=== PATIENT | female | born 1955 | race Caucasian/White ===

== ENCOUNTER → 2016-06-30 | Outpatient (CLI) | payer BC ==
[~2016-06-30] MED LIST: ALBUAER2 INH; ASPEC325 PO; B-COCAP2 PO; CALC1CHW57 PO; CLB200 PO; CORN1POW2 PO; FLNIN NAE; GLUCTAB32; LEVO75TA PO; MONT1TAB3 PO; MULT-506 PO; OMEG10007 PO; OMEP40CA PO; OXYSR10 PO; SIMV20TA2 PO
== END | disposition home or self-care (01) ==
LOC: C.LABPVFM 07:27
PROVIDERS: ATTEND Family Medicine
DX: J02.9 Acute pharyngitis, unspecified (principal)

== ENCOUNTER → 2016-07-02 | Outpatient (CLI) | payer BC | END | disposition home or self-care (01) | LOC: C.LAB 14:09 | PROVIDERS: ATTEND Family Medicine | DX: Z00.00 Encounter for general adult medical examination without abnormal findings (principal); Z84.89 Family history of other specified conditions ==

== ENCOUNTER → 2016-07-09 | Outpatient (CLI) | payer BC | END | disposition home or self-care (01) | LOC: C.LAB 16:17 | PROVIDERS: ATTEND Family Medicine | DX: Z84.89 Family history of other specified conditions (principal) ==

== ENCOUNTER → 2016-12-09 | Outpatient (CLI) | payer BC | END | disposition home or self-care (01) | LOC: C.PAPS 09:48 | PROVIDERS: ATTEND Nurse Practitioner | DX: Z00.00 Encounter for general adult medical examination without abnormal findings (principal); Z12.4 Encounter for screening for malignant neoplasm of cervix ==

== ENCOUNTER → 2016-12-22 | Outpatient (CLI) | payer BC ==
--- NOTE | 2016-12-22 15:43 | MAMMOGRAPHY REPORT ---
UNILATERAL LEFT DIGITAL SCREENING MAMMOGRAM TOMOSYNTHESIS WITH CAD: 12/22/2016 CLINICAL HISTORY: Asymptomatic. Personal history of breast cancer. TECHNIQUE: Left breast tomosynthesis in addition to standard 2D mammography was performed. Current st udy was also evaluated with a Computer Aided Detection (CAD) system. COMPARISON: Comparison is made to exams dated: 11/27/2015 mammogram, 11/25/2014 mammogram, 08/08/2013 ma mmogram, 08/03/2012 mammogram, 01/21/2012 mammogram, and 01/27/2012 mammogram - [facility] nter. BREAST COMPOSITION: There are scattered areas of fibroglandular density in the left breast. FINDINGS: There is a stable benign rim calcification in the 3:00 left breast. No suspicious mass, a rchitectural distortion or cluster of new, suspicious microcalcifications is seen. IMPRESSION: ACR BI-RADS CATEGORY 1: NEGATIVE There is no mammographic evidence of malignancy. A 1 year screening mammogram is recommended. The pa tient will receive written notification of the results. Approximately 10% of breast cancers are not detected with mammography. A negative mammographic report should not delay biopsy if a clinically suggestive mass is present. Manjula Benson M.D. ay/:12/22/2016 15:28:02 Airline Ticket Agent: Venita ANDREWS)([place])([place]), [facility] letter sent: Normal 1/2 BI-RADS Code: ACR BI-RADS Category 1: Negative
== END | disposition home or self-care (01) ==
LOC: C.MAMM 12:40
PROVIDERS: ATTEND Family Medicine
DX: Z12.31 Encounter for screening mammogram for malignant neoplasm of breast (principal); Z85.3 Personal history of malignant neoplasm of breast; Z08 Encounter for follow-up examination after completed treatment for malignant neoplasm

== ENCOUNTER → 2017-04-23 | Outpatient (CLI) | payer BC ==
[2017-04-23 13:19] LABS: BLOOD UREA NITROGEN 20 mg/dl (7-18); BUN/CREATININE RATIO 24.9 (10-20); CARBON DIOXIDE 32 mmol/L (21-32); CHLORIDE 103 mmol/L (98-107); CREATININE 0.82 mg/dl (0.60-1.20); GLUCOSE 108 mg/dl (70-99); POTASSIUM 4.1 mmol/L (3.5-5.1); SODIUM 138 mmol/L (136-145)
[2017-04-23 13:29] LABS: CHOLESTEROL 165 mg/dl (0-200); CHOLESTEROL/HDL RATIO 2.6; HDL CHOLESTEROL 63 mg/dl; LDL CHOLESTEROL CALCULATED 85 mg/dl; TRIGLYCERIDES 83 mg/dl (0-150); VERY LOW DENSITY LIPOPROT CALC 17 mg/dl
== END | disposition home or self-care (01) ==
LOC: C.LABPVFM 08:03
PROVIDERS: ATTEND Family Medicine
DX: E03.9 Hypothyroidism, unspecified (principal); E87.6 Hypokalemia; E78.2 Mixed hyperlipidemia

== ENCOUNTER → 2017-06-20 | Day surgery (SDC) | payer BC ==
[2017-06-07 08:48] VITALS: Ht 167.6 cm; Wt 97.7 kg
[~2017-06-20] VITALS: Ht 167.6 cm; Wt 97.7 kg
[~2017-06-20] MED LIST changes: -ALBUAER2 INH; -ASPEC325 PO; +ATROPINE SULFATE 0.1 MG/ML 5ML SYR IV PRN; -B-COCAP2 PO; -CALC1CHW57 PO; -CLB200 PO; -CORN1POW2 PO; -FLNIN NAE; -GLUCTAB32; +INUL1CHW2 PO; +LIDOCAINE HCL 2% 2 ML VIAL (20MG/ML) ONE; +MAGN400T6 PO; +MELO15TA4 PO; +MIDAZOLAM HCL 1 MG/ML 2ML VIAL ONE; -OMEG10007 PO; -OMEP40CA PO; +OMEP40CA41 PO; -OXYSR10 PO; +POTA10CA28 PO; +PROPOFOL IV EMULSION 10 MG/ML 20 ML VIAL IV ONE; +RANI150T3 PO
--- NOTE | 2017-06-20 15:01 | Endo History and Physical ---
History & Physical Date of Service: Jun 20, 2017. Chief Complaint: Tubular Adenoma Referring Physician: Delfino History of Present Illness 61 yo CF who presents for colonoscopy secondary to history of colon polyps. Past Surgical History Hx Cardiac Surgery: No Hx Abdominal Surgery: Yes (TUBAL LIGATION, COLON RESECTION/COLOSTOMY AND REVERSAL) Hx Post-Op Nausea and Vomiting: No Hx Cancer Surgery: Yes (RT MASTECTOMY) Hx Thoracic Surgery: No Hx Orthopedic: Yes (LEFT TKA) Hx Urinary Tract Surgery: No Family History None Social History Smoking Status: Never Smoker Hx Substance Use: No Hx Alcohol Use: No Allergies Coded Allergies: Ephedrine (Unverified Adverse Reaction, Unknown, INCREASED HEART RATE, 06/07) Pseudoephedrine (Unverified Adverse Reaction, Unknown, INCREASED HEART RATE, 06/07/17) Current Medications Reported Home Medications Medications Dose Route/Sig Max Daily Dose Days Date Category Mag-Ox (Magnesium Oxide) 400 Mg Tab 400 Mg PO 06/20/17 Reported Mobic (Meloxicam) 15 Mg Tab 15 Mg PO DAILY AT LUNCH 06/07/17 Reported Synthroid (Levothyroxine Sodium) 75 Mcg Tab 75 Mcg PO QAM 06/07/17 Reported Zantac (Ranitidine HCl) 150 Mg Tab 150 Mg PO BID 06/07/17 Reported Prilosec (Omeprazole) 40 Mg Cap 40 Mg PO BID 06/07/17 Reported Fiber Choice (Inulin) 1.5 Gm Chw 1 Dose PO DAILY 06/07/17 Reported Multivitamin (Multivitamins) Tab 1 Tab PO DAILY 06/07/17 Reported Micro-K Ext Rel (Potassium Chloride) 10 Meq Capcr 10 Meq PO DAILY AT LUNCH 06/07/17 Reported Zocor (Simvastatin) 20 Mg Tab 20 Mg PO QPM 06/07/17 Reported Singulair (Montelukast Sodium) 10 Mg Tab 10 Mg PO HS 06/07/17 Reported Vital Signs Weight (Kilograms): 97.73 Height (Feet): 5 Height (Inches): 6 Date Time Temp Pulse Resp B/P (MAP) Pulse Ox O2 Delivery O2 Flow Rate FiO2 06/20/17 14:35 36.6 80 20 158/92 (114) 96 Room Air Physical Exam General Appearance: WD/WN, no apparent distress Respiratory/Chest: Auscultation: breath sounds normal Cardiovascular: Heart Auscultation: RRR Abdomen: Bowel Sounds: normal Inspection & Palpation: soft, non-distended, no tenderness, guarding & rebound Assessment and Plan Assessment: 61 yo CF who presents for colonoscopy secondary to history of colon polyps. Plan: Proceed with colonoscopy.
--- NOTE | 2017-06-20 16:02 | GI REPORT ---
Procedure Date: 06/20/2017 3:06 PM THIS REPORT HAS BEEN AMENDED Addendum Number: 1 Addendum Date: 06/20/2017 4:15:23 PM Indication for Procedure should be History of Colon polyps. Repeat colonoscopy should be in 5 years due to personal history of colon polyps. Procedure: Colonoscopy Indications: Screening for colorectal malignant neoplasm Medicines: Monitored Anesthesia Care Complications: No immediate complications. Estimated Blood Loss: Estimated blood loss: none. Procedure: Pre-Anesthesia Assessment: - Prior to the procedure, a History and Physical was performed, and patient medications and allergies were reviewed. The patient's tolerance of previous anesthesia was also reviewed. The risks and benefits of the procedure and the sedation options and risks were discussed with the patient. All questions were answered, and informed consent was obtained. Prior Anticoagulants: The patient has taken no previous anticoagulant or antiplatelet agents. ASA Grade Assessment: III - A patient with severe systemic disease. After reviewing the risks and benefits, the patient was deemed in satisfactory condition to undergo the procedure. After I obtained informed consent, the scope was passed under direct vision. Throughout the procedure, the patient's blood pressure, pulse, and oxygen saturations were monitored continuously. The Scope was introduced through the anus and advanced to the terminal ileum. The colonoscopy was performed without difficulty. The patient tolerated the procedure well. The quality of the bowel preparation was good. The terminal ileum, ileocecal valve, appendiceal orifice, and rectum were photographed. Findings: The perianal and digital rectal examinations were normal. There was evidence of a prior end-to-side colo-colonic anastomosis in the sigmoid colon. This was patent and was characterized by healthy appearing mucosa. The anastomosis was traversed. Multiple small-mouthed diverticula were found in the sigmoid colon. Non-bleeding internal hemorrhoids were found during retroflexion. The hemorrhoids were small. Impression: - Patent end-to-side colo-colonic anastomosis, characterized by healthy appearing mucosa. - Diverticulosis in the sigmoid colon. - Non-bleeding internal hemorrhoids. - No specimens collected. Recommendation: - Resume previous diet. - Continue present medications. - Await pathology results. - Repeat colonoscopy in 10 years for surveillance. - Return to primary care physician as previously scheduled. Adam Wu DO 06/20/2017 4:02:01 PM This report has been signed electronically. Note Initiated On: 06/20/2017 3:06 PM I attest to the content of the Intraoperative Record and orders documented therein, exceptions below Adam Wu, DO 06/20/2017 4:16:02 PM This report has been signed electronically.
--- NOTE | 2017-06-20 16:04 | Discharge Instructions ---
Endoscopy Patient Instructions Date / Procedure(s) Performed Jun 20, 2017. Colonoscopy Allergy Information Coded Allergies: Ephedrine (Unverified Adverse Reaction, Unknown, INCREASED HEART RATE, ) Pseudoephedrine (Unverified Adverse Reaction, Unknown, INCREASED HEART RATE, 06/20/17) Discharge Date / Findings Jun 20, 2017. Diverticulosis Internal hemorrhoids Medication Instructions OK to resume all medications today as prescribed Reported Home Medications Medications Dose Route/Sig Max Daily Dose Days Date Category Mag-Ox (Magnesium Oxide) 400 Mg Tab 400 Mg PO 06/20/17 Reported Mobic (Meloxicam) 15 Mg Tab 15 Mg PO DAILY AT LUNCH 06/07/17 Reported Synthroid (Levothyroxine Sodium) 75 Mcg Tab 75 Mcg PO QAM 06/07/17 Reported Zantac (Ranitidine HCl) 150 Mg Tab 150 Mg PO BID 06/07/17 Reported Prilosec (Omeprazole) 40 Mg Cap 40 Mg PO BID 06/07/17 Reported Fiber Choice (Inulin) 1.5 Gm Chw 1 Dose PO DAILY 06/07/17 Reported Multivitamin (Multivitamins) Tab 1 Tab PO DAILY 06/07/17 Reported Micro-K Ext Rel (Potassium Chloride) 10 Meq Capcr 10 Meq PO DAILY AT LUNCH 06/07/17 Reported Zocor (Simvastatin) 20 Mg Tab 20 Mg PO QPM 06/07/17 Reported Singulair (Montelukast Sodium) 10 Mg Tab 10 Mg PO HS 06/07/17 Reported Provider Instructions Activity Restrictions - No exercising or heavy lifting for 24 hours. - Do not drink alcohol the day of the procedure. - Do not drive a car or operate machinery until the day after the procedure. - Do not make any important decisions or sign important papers in 24 hours after the procedure. Following Day: - Return to full activity which may include returning to work/school. Diet Start your diet with liquids and light foods (jello, soup, juice, toast). Then eat your usual diet if not nauseated. Treatment For Common After Affects For mild abdominal pain, bloating, or excessive gas: - Rest - Eat lightly - Lie on right side Follow-Up Information Follow-up with Delfino as scheduled Anesthesia Information What You Should Know You have had a procedure that required some medicine to reduce anxiety and discomfort. This treatment is called moderate sedation. After receiving the treatment, you may be sleepy, but you will be able to breathe on your own. The effects of the treatment may last for several hours. Follow these instructions along with Activity/Diet recommendations noted above: * Do NOT do anything where dizziness or clumsiness would be dangerous. * Rest quietly at home today, then you can be up and about tomorrow. * Have a responsible person stay with you the rest of today. * You may have had an I.V. today. If so, you may take the dressing off later today. Recommendations Call your doctor if: * Trouble breathing * Continuous vomiting for more than 24 hours * Temperature above 101 degrees * Severe abdominal pain or bloating * Pain not relieved by pain medicine ordered * There is increased drainage or redness from any incision * A large amount of rectal bleeding greater than 2-3 tablespoons. (If you had a polyp/s removed or have hemorrhoids, a small amount of blood - from the rectum is to be expected.) * You have any unanswered questions or concerns. IN THE EVENT OF A SERIOUS EMERGENCY, GO TO THE NEAREST EMERGENCY ROOM Your discharge instructions were prepared by provider Adam Wu. Patient Instructions Signature Page Brook Martinez Patient (or Guardian) Signature/Date: I have read and understand the instructions given to me by my caregivers. Caregiver/RN/Doctor Signature/Date: The above-named patient and/or guardian has received patient instructions on this date. + Original Patient Signature Page (only) stays with chart. Please make copy for patient.
--- NOTE | 2017-06-20 16:21 | Anesthesiology Progress Note ---
Anesthesia Post Op Note Date & Time Jun 20, 2017 at 16:20 Vital Signs Pain Intensity: 0 Vital Signs Past 12 Hours Date Time Temp Pulse Resp B/P (MAP) Pulse Ox O2 Delivery O2 Flow Rate FiO2 06/20/17 16:10 62 18 137/88 (104) 98 Room Air 06/20/17 15:55 66 18 128/79 (95) 96 Room Air 06/20/17 14:35 36.6 80 20 158/92 (114) 96 Room Air Notes Mental Status: alert / awake / arousable, participated in evaluation Pt Amnestic to Procedure: Yes Nausea / Vomiting: adequately controlled Pain: adequately controlled Airway Patency, RR, SpO2: stable & adequate BP & HR: stable & adequate Hydration State: stable & adequate Anesthetic Complications: no major complications apparent
[2017-06-20 16:25] VITALS: BP 157/99; PULSE 62; O2SAT 98
== END | disposition home or self-care (01) ==
LOC: C.GI 14:09
PROVIDERS: ATTEND Internal Medicine
DX: Z12.11 Encounter for screening for malignant neoplasm of colon (principal); Z86.010 Personal history of colon polyps; K57.30 Diverticulosis of large intestine without perforation or abscess without bleeding; K64.8 Other hemorrhoids; Z98.0 Intestinal bypass and anastomosis status; E78.5 Hyperlipidemia, unspecified; G47.33 Obstructive sleep apnea (adult) (pediatric); K21.9 Gastro-esophageal reflux disease without esophagitis; E03.9 Hypothyroidism, unspecified; M19.90 Unspecified osteoarthritis, unspecified site; E66.9 Obesity, unspecified; Z68.34 Body mass index [BMI] 34.0-34.9, adult; Z85.3 Personal history of malignant neoplasm of breast; Z79.899 Other long term (current) drug therapy

== ENCOUNTER → 2017-09-26 | Outpatient (CLI) | payer BC ==
[~2017-09-26] MED LIST changes: -ATROPINE SULFATE 0.1 MG/ML 5ML SYR IV PRN; -LIDOCAINE HCL 2% 2 ML VIAL (20MG/ML) ONE; +MELO-84 PO; -MELO15TA4 PO; -MIDAZOLAM HCL 1 MG/ML 2ML VIAL ONE; -PROPOFOL IV EMULSION 10 MG/ML 20 ML VIAL IV ONE
== END | disposition home or self-care (01) ==
LOC: C.MAMM 15:40
PROVIDERS: ATTEND Family Medicine
DX: Z00.00 Encounter for general adult medical examination without abnormal findings (principal)

== ENCOUNTER → 2017-12-26 | Outpatient (CLI) | payer BC ==
--- NOTE | 2017-12-27 07:31 | MAMMOGRAPHY REPORT ---
UNILATERAL LEFT DIGITAL SCREENING MAMMOGRAM TOMOSYNTHESIS WITH CAD: 12/26/2017 CLINICAL HISTORY: Personal history of breast cancer. Asymptomatic. TECHNIQUE: The study was acquired using full field digital technology and interpreted from soft copy. Breast tomosynthesis in addition to standard 2D mammography was performed. Current study was also ev aluated with a Computer Aided Detection (CAD) system. COMPARISON: Comparison is made to exams dated: 12/22/2016 mammogram, 11/27/2015 mammogram, 11/25/2014 m ammogram, 08/08/2013 mammogram, 08/03/2012 mammogram, and 01/27/2012 ultrasound - [facility] enter. BREAST COMPOSITION: There are scattered areas of fibroglandular density in left breast. FINDINGS: The parenchymal pattern of the left breast is unchanged. No developing mass, architectural distortion or cluster of suspicious microcalcifications is seen. IMPRESSION: ACR BI-RADS CATEGORY 2: BENIGN BI-RADS: BI-RADS 1NEGATIVE. There is no mammographic evidence of malignancy. [facility]12/[facility]/2018) The patient will receive written notification of the results. Some breast cancers are not detected with mammography. A negative mammographic report should not debora y biopsy if a clinically suggestive mass is present. Manjula Benson M.D. ay/:12/26/2017 10:14:09 Personnel Research Scientist: RT Kelsey([place])(M), [facility] letter sent: Normal 1/2 BI-RADS Code: ACR BI-RADS Category 2: Benign
== END | disposition home or self-care (01) ==
LOC: C.MAMM 08:53
PROVIDERS: ATTEND Family Medicine
DX: Z12.31 Encounter for screening mammogram for malignant neoplasm of breast (principal); Z85.3 Personal history of malignant neoplasm of breast

== ENCOUNTER 2023-09-14 09:39 | Observation (INO) ==
--- NOTE | 2023-08-23 16:14 | PAT Medication Instructions ---
Medication Instructions Date of Service August 23, 2023 Home Medications Medication Instructions Recorded albuterol sulfate 90 mcg/actuation 2 inh inhalation Q6H PRN shortness 10/10/20 breath activated powder inhaler of breath or wheezing #1 ea fluticasone propionate 50 1 spray intranasal BID #48 grams 11/12/22 mcg/actuation nasal spray,suspension naloxone 1 mg/mL injection syringe 1 mg subcut .COMPLEX PRN opioid 04/08/23 reversal #4 mL gabapentin 300 mg capsule 300 mg PO TID #270 caps 08/09/23 qluwitfazul-svu-eshyhwbkj-vitC capsule (Glucosamine Complex-MSM capsule) 1 cap PO DAILY multivitamin,ya-jswr-ldkirrhv (Complete Multivitamin tablet) 1 tab PO QPM albuterol sulfate 90 mcg/actuation breath activated powder inhaler 2 inh inhalation Q6H PRN cholecalciferol (vitamin D3) 125 mcg (5,000 unit) capsule 125 mcg PO QPM turmeric 400 mg capsule 400 mg PO BID lactobacillus combination no.8 3 billion cell capsule (Adult Probiotic) 1 cell PO BID cyanocobalamin (vitamin B-12) 1,000 mcg capsule 1,000 mcg PO QPM calcium citrate 315 mg-vitamin D3 5 mcg (200 unit) tablet (Calcium Citrate + D) 2 tab PO QPM magnesium oxide 500 mg capsule 500 mg PO BID aspirin 81 mg tablet,delayed release 81 mg PO QPM acetaminophen 650 mg tablet,extended release (Tylenol 8 Hour) 1,300 mg PO TID fluticasone propionate 50 mcg/actuation nasal spray,suspension 1 spray intranasal BID naloxone 1 mg/mL injection syringe 1 mg subcut .COMPLEX PRN gabapentin 300 mg capsule 300 mg PO TID Folate-Folic Acid 1 tab PO QPM cetirizine 10 mg tablet (Zyrtec) 10 mg PO HS docusate sodium 100 mg capsule (Colace) 100 mg PO DAILY PRN famotidine 20 mg tablet 20 mg PO HS levothyroxine 75 mcg tablet 75 mcg PO QAM lisinopril 20 mg tablet 20 mg PO HS methylcellulose (laxative) 500 mg tablet 2,500 mg PO QPM montelukast 10 mg tablet 10 mg PO HS nystatin 100,000 unit/gram topical powder 1 applic topical BID PRN omega-3 fatty acids 1 cap PO QPM omeprazole 40 mg capsule,delayed release 40 mg PO QAM potassium chloride 10 mEq capsule,extended release 10 meq PO BID simvastatin 40 mg tablet 40 mg PO HS trazodone 50 mg tablet 50 - 100 mg PO HS PRN Continue as directed naloxone 1 mg/mL injection syringe 1 mg subcut .COMPLEX PRN(if needed) ASK your prescriber and surgeon aspirin 81 mg tablet,delayed release 81 mg PO QPM STOP taking 2 weeks before surgery (or as soon as possible if surgery is within 2 weeks) qzeuytrtbte-ojx-xpmookzny-vitC capsule (Glucosamine Complex-MSM capsule) 1 cap PO DAILY turmeric 400 mg capsule 400 mg PO BID omega-3 fatty acids 1 cap PO QPM STOP taking 24 hours before surgery nystatin 100,000 unit/gram topical powder 1 applic topical BID PRN DO NOT take the morning of surgery lactobacillus combination no.8 3 billion cell capsule (Adult Probiotic) 1 cell PO BID magnesium oxide 500 mg capsule 500 mg PO BID docusate sodium 100 mg capsule (Colace) 100 mg PO DAILY PRN potassium chloride 10 mEq capsule,extended release 10 meq PO BID Take morning of surgery With a small sip of water, OTHERWISE NOTHING TO EAT OR DRINK AFTER MIDNIGHT: albuterol sulfate 90 mcg/actuation breath activated powder inhaler 2 inh inhalation Q6H PRN(use if needed; please bring with you to hospital day of surgery if possible) acetaminophen 650 mg tablet,extended release (Tylenol 8 Hour) 1,300 mg PO TID fluticasone propionate 50 mcg/actuation nasal spray,suspension 1 spray intranasal BID gabapentin 300 mg capsule 300 mg PO TID levothyroxine 75 mcg tablet 75 mcg PO QAM omeprazole 40 mg capsule,delayed release 40 mg PO QAM Take evening before surgery multivitamin,pt-fpzi-tpuooohb (Complete Multivitamin tablet) 1 tab PO QPM albuterol sulfate 90 mcg/actuation breath activated powder inhaler 2 inh inhalation Q6H PRN(if needed) cholecalciferol (vitamin D3) 125 mcg (5,000 unit) capsule 125 mcg PO QPM lactobacillus combination no.8 3 billion cell capsule (Adult Probiotic) 1 cell PO BID cyanocobalamin (vitamin B-12) 1,000 mcg capsule 1,000 mcg PO QPM calcium citrate 315 mg-vitamin D3 5 mcg (200 unit) tablet (Calcium Citrate + D) 2 tab PO QPM magnesium oxide 500 mg capsule 500 mg PO BID acetaminophen 650 mg tablet,extended release (Tylenol 8 Hour) 1,300 mg PO TID fluticasone propionate 50 mcg/actuation nasal spray,suspension 1 spray intranasal BID gabapentin 300 mg capsule 300 mg PO TID Folate-Folic Acid 1 tab PO QPM cetirizine 10 mg tablet (Zyrtec) 10 mg PO HS famotidine 20 mg tablet 20 mg PO HS lisinopril 20 mg tablet 20 mg PO HS methylcellulose (laxative) 500 mg tablet 2,500 mg PO QPM montelukast 10 mg tablet 10 mg PO HS potassium chloride 10 mEq capsule,extended release 10 meq PO BID simvastatin 40 mg tablet 40 mg PO HS trazodone 50 mg tablet 50 - 100 mg PO HS PRN(if needed) Other Notes If you have any questions please call us at [phone] or [phone] or [phone] or [phone]
--- NOTE | 2023-08-26 10:36 | Anesthesiology Consultation ---
Date of Service August 26, 2023 Assessment & Plan (1) Encounter for pre-operative examination: Chart Review Chart Review: Acceptable Risk for Surgery and Patient seen in Pre Admission Testing L3-L5 lumbar fusion 02/2023 at [facility] [place] - did educate patient that we would leave to anesthesiologist's discretion if surgery would be done under SAB or GA (educated on both) Right limb restriction Patient is NOT an ideal OPJ candidate Per PAT appt on 08/26/23, no recent illness/disease exposures, illness related symptoms, or recent illness/disease positive tests. Will leave to surgeon's discretion if preop Covid testing needed Teaching & Discussion Pre-Anesthesia Teaching/Discussion Notes: Instructed NPO after midnight before surgery,except medications with 15 cc of water. Medication instructions provided according to the PAT guidelines. History Surgery Operation Date: 09/14/23 12:30 Proposed Procedures p Right Total Knee Arthroplasty - David Mckeon MD Height/Weight Height: 5 ft 3 in Weight: 98.8 kg Allergies Allergy/AdvReac Type Severity Reaction Status Date / Time atropine Allergy Unknown skin Verified 08/23/23 14:30 turned red ephedrine AdvReac Unknown INCREASED Verified 08/23/23 14:30 HEART RATE pseudoephedrine AdvReac Unknown INCREASED Verified 08/23/23 14:30 HEART RATE Medications Home Medications Medication Instructions Recorded Confirmed Last Taken turdmnelznc-vnj-nxgpfywdu-vitC 1 cap PO DAILY 12/19/18 08/23/23 Unknown capsule (Glucosamine Complex-MSM capsule) multivitamin,hl-cpdc-[id number] 1 tab PO QPM 12/19/18 08/23/23 Unknown (Complete Multivitamin tablet) albuterol sulfate 90 mcg/actuation 2 inh inhalation Q6H PRN shortness 10/10/20 08/23/23 Unknown breath activated powder inhaler of breath or wheezing #1 ea cholecalciferol (vitamin D3) 125 125 mcg PO QPM 04/23/21 08/23/23 Unknown mcg (5,000 unit) capsule turmeric 400 mg capsule 400 mg PO BID 09/15/21 08/23/23 Unknown lactobacillus combination no.8 3 1 cell PO BID 10/06/21 08/23/23 Unknown billion cell capsule (Adult Probiotic) cyanocobalamin (vitamin B-12) 1,000 mcg PO QPM 01/26/22 08/23/23 Unknown 1,000 mcg capsule calcium citrate 315 mg-vitamin D3 2 tab PO QPM 02/18/22 08/23/23 Unknown 5 mcg (200 unit) tablet (Calcium Citrate + D) magnesium oxide 500 mg capsule 500 mg PO BID 02/18/22 08/23/23 Unknown aspirin 81 mg tablet,delayed 81 mg PO QPM 09/02/22 08/23/23 Unknown release acetaminophen 650 mg 1,300 mg PO TID 10/25/22 08/23/23 Unknown tablet,extended release (Tylenol 8 Hour) fluticasone propionate 50 1 spray intranasal BID #48 grams 11/12/22 08/23/23 Unknown mcg/actuation nasal spray,suspension naloxone 1 mg/mL injection syringe 1 mg subcut .COMPLEX PRN opioid 04/08/23 08/23/23 Unknown reversal #4 mL gabapentin 300 mg capsule 300 mg PO TID #270 caps 08/09/23 08/23/23 Unknown Folate-Folic Acid 1 tab PO QPM 08/23/23 08/23/23 Unknown cetirizine 10 mg tablet (Zyrtec) 10 mg PO HS 08/23/23 08/23/23 Unknown docusate sodium 100 mg capsule 100 mg PO DAILY PRN Constipation 08/23/23 08/23/23 Unknown (Colace) famotidine 20 mg tablet 20 mg PO HS 08/23/23 08/23/23 Unknown levothyroxine 75 mcg tablet 75 mcg PO QAM 08/23/23 08/23/23 Unknown lisinopril 20 mg tablet 20 mg PO HS 08/23/23 08/23/23 Unknown methylcellulose (laxative) 500 mg 2,500 mg PO QPM 08/23/23 08/23/23 Unknown tablet montelukast 10 mg tablet 10 mg PO HS 08/23/23 08/23/23 Unknown nystatin 100,000 unit/gram topical 1 applic topical BID PRN Skin 08/23/23 08/23/23 Unknown powder Irritation omega-3 fatty acids 1 cap PO QPM 08/23/23 08/23/23 Unknown omeprazole 40 mg capsule,delayed 40 mg PO QAM 08/23/23 08/23/23 Unknown release potassium chloride 10 mEq 10 meq PO BID 08/23/23 08/23/23 Unknown capsule,extended release simvastatin 40 mg tablet 40 mg PO HS 08/23/23 08/23/23 Unknown trazodone 50 mg tablet 50 - 100 mg PO HS PRN Sleep 08/23/23 08/23/23 Unknown Past Medical History Medical History Breast cancer 2013, s/p right mastectomy- no chemo or XRT right limb restriction Cervical radiculopathy no current issues Chronic reflux esophagitis well controlled and stable Diverticulosis 2013- s/p colostomy with reversal due to diverticulitis- no issues since Extrinsic asthma inh prn>"has not used inhaler since 2018" History of anesthesia reaction "had a sluggish bowel following surgery" Hypertension Hypothyroidism Mixed hyperlipidemia Scoliosis s/p L3-L5 fusion 02/2023- at [facility] [place] does have chronic back pain- uses cane for ambulation x 1 year Seasonal allergies No current issues Exercise / Class Metabolic Activity II 4-5 Yardwork/Stairs/Walk up hill (no chest pain with flat surface ambulation, no significant SOB unless hurrying or carrying objections- uses cane to ambulate; water aerobics 2x weekly; elliptical bike daily ) Past Family History Family History Father Congestive heart failure Denies family history of Ovarian cancer Prostate cancer Myocardial infarction Breast cancer Colorectal cancer Past Surgical History Surgical History History of bunionectomy of right great toe History of colostomy History of colostomy reversal History of eye surgery for crossed eyes as baby History of left knee replacement History of lumbar fusion 02/14/23, [facility] [place] History of partial colectomy History of right mastectomy History of tonsillectomy and adenoidectomy History of tubal ligation Hx of colonoscopy Past Anesthesia History No Hx of Anesthesia Complications (with exception to "slower bowels" after mihai chas ) and No Family Hx of Anesthesia Complications History of PONV No Hx of PONV and No Hx of Motion Sickness Social History Smoking Status: Never smoker Do You Dip or Chew Tobacco: No Hx Alcohol Use: No Hx Substance Use: No substance use type: does not use Review of Systems - Hx of snoring- occ witnessed apnea- no hx of sleep study - has been losing weight (intentionally) Patient denies chest pain, shortness of breath at rest, reflux, cough, wheezing, palpitations. No hx of seizures, stroke, NC. No hx of blood clots or blood transfusions Physical Exam Vital Signs VITALS BP 105/72 P 74 TEMP 97.5 SP02 94% RESP 16 Constitutional no acute distress ENMT Mouth: no TMJ clicking Thyromental Distance: > or= 3.5 Finger Breadths (3.5) Mallampati Class: III Two front top teeth capped Crowns to molars Neck + thick neck (mild) and + limited neck extension (mild) Respiratory normal respiratory effort; no respiratory distress Auscultation: lungs clear to auscultation bilaterally; no wheezes Cardiovascular Rate/Rhythm: regular rate and regular rhythm Heart Sounds: no murmur Vessels: no carotid bruit Musculoskeletal Spine: + pain with cervical ROM (mild stretching) Extremities: extremities normal to inspection Psychiatric Orientation: alert Lab Results Anesthesia Preop Results Results Anesthesia Widget: WBC 5.61 K/ul (4.8-10.8) 08/26/23 Hgb 12.9 g/dl (12.0-16.0) 08/26/23 Hct 38.3 % (37.0-47.0) 08/26/23 Plt 273 K/uL (130-400) 08/26/23 Na 136 mmol/L (136-145) 08/26/23 K 4.2 mmol/L (3.5-5.1) 08/26/23 Cl 102 mmol/L (98-107) 08/26/23 CO2 28 mmol/L (21-32) 08/26/23 BUN 15 mg/dl (6-23) 08/26/23 Creat 0.83 mg/dl (0.6-1.2) 08/26/23 Glucose Level 99 mg/dl (70-99(Fasting)) 08/26/23 PT 10.6 Seconds (9.0-12.0) 08/26/23 PTT 28 Seconds (21-31) 08/26/23 INR 1.0 (0.9-1.1) 08/26/23 Blood Type O Positive 08/26/23 Antibody Screen NEGATIVE 08/26/23 Testing Electrocardiogram Date: 09/02/23 Findings: + NSR @ (62bpm) Normal EKG per cardio Chest X-Ray Date: 08/26/23 Findings: + NAD FINDINGS: PA and lateral chest radiographs are compared to study dated 10/19/2013. The cardiomediastinal silhouette is unremarkable noting atherosclerotic calcification of the thoracic aorta. There is mild bibasilar atelectasis. The lungs and pleural spaces are otherwise clear. There is no pneumothorax. The skeletal structures are osteopenic. The bony thorax appears intact. Echocardiogram Date: 04/09/20 EF: 60 to 65% LV Function: normal RWMA: + none Other Findings: + diastolic dysfunction (Grade 1) Valvular Disease: + no significant valvular disease No LV thrombus. Left atrium mildly dilated RV mildly dilated Right atrium mildly dilated. Stress Test Date: 12/25/21 Type: DSE Resting EF: 60-65% Resting LV Function: normal Resting RWMA: + none Valvular Disease: no significant valvular disease Negative DSE and EKG for ischemia for ischemia at 85% MPHR. Appropriate BP response. No arrhythmia. No chest pain reported. Other Testing MRI of the brain 01/05/2022 = No acute intracranial findings. 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 Minimal small vessel disease. (Last seen by neurology 08/27/2022 = previous dizziness has resolved. Reviewed MRI of the braindue to areas of old ischemiaaspirin 81 mg was added; patient to follow-up as needed) Carotid duplex 12/10/2021 = <50% stenosis of right and left internal carotid arteries. Antegrade flow in bilateral vertebral arteries.
[~2023-09-14 09:39] MED LIST changes: +BUPIVACAINE 0.5 % 5 MG/1 ML PF 10ML VIAL ONE; -INUL1CHW2 PO; -LEVO75TA PO; -MAGN400T6 PO; -MELO-84 PO; -MONT1TAB3 PO; -MULT-506 PO; -OMEP40CA41 PO; -POTA10CA28 PO; -RANI150T3 PO; +ROPIVACAINE 0.5% 5 MG/ML 30 ML VIAL ONE; -SIMV20TA2 PO
[2023-09-14] MEDS: LR 60ML/HR IV SCH (10:15)
[2023-09-14] MEDS: LR 500ML BOLUS, THEN 15ML/HR IV SCH (10:15)
[2023-09-14] MEDS: dexAMETHasone**PF** 10 MG/ML VIAL IV SCH (10:16)
[2023-09-14] MEDS: METOCLOPRAMIDE HCL 10 MG TABLET PO SCH (10:16)
[2023-09-14] MEDS: ACETAMINOPHEN 500 MG TAB PO SCH ×2 (10:16→19:40)
[2023-09-14] MEDS: FAMOTIDINE 20 MG TAB PO SCH ×2 (10:16→19:41)
[2023-09-14] MEDS: CeleBREX 200 MG CAP PO SCH (10:16)
--- NOTE | 2023-09-14 11:03 | History & Physical Bridge Note ---
Date of Service September 14, 2023 History & Physical Bridge Note I have examined the patient, reviewed the History & Physical and in the interval since the performance of the History & Physical I have noted the following changes of clinical significance: no changes noted
[2023-09-14] MEDS ORDERED: MIDAZOLAM HCL 1 MG/ML 2ML VIAL ONE ×2 (12:36)
[2023-09-14] MEDS ORDERED: PROPOFOL IV EMULSION 10 MG/ML 20 ML VIAL IV ONE (13:53)
[2023-09-14] MEDS: ceFAZolin 2000MG 2,000 MG/15 ML SYR IV SCH ×2 (13:56→21:02)
[2023-09-14] MEDS: ORTHO JOINT ANESTHETIC ONE (14:23)
[2023-09-14] MEDS: ROPIV 0.5% 246mg, Ketorolac 30mg, EPINEPHrine 0.5mg in NSS INFIL SCH (14:23)
[2023-09-14] MEDS: TRANEXAMIC ACID 1,000 MG **IV Intra-op IV SCH (14:41)
--- NOTE | 2023-09-14 15:32 | Operative Report ---
PG Post Operative Report Pre & Post Diagnosis Operation Date: 09/14/23 12:30 Pre-Op Diagnosis: Right Knee Degerative Joint Disease Post-Op Diagnosis: Right Knee Degerative Joint Disease I identified the patient and participated in the time-out.: Yes Procedure Operation Date: 09/14/23 12:30 Actual Procedures p Right Total Knee Arthroplasty(Right) - David Mckeon MD Surgeon David Mckeon MD Envelope Sealing Machine Operator Yazan Sood PA-C Estimated Blood Loss 50 Findings Consistent with Post-Op Diagnosis Operative findings revealed advanced right knee tricompartment DJD. She had extensive grade 4 nnyl-wu-gnqy disease and significant erosions throughout entire knee in all 3 compartments. Fairly stiff knee preoperatively with flexion contracture of 10 degrees and can only bend about 90 degrees. Diffuse osteopenia. Osteophytes in all 3 compartments. Specimens Right knee sent for pathology. Anesthesia Type Spinal MAC Complications none Disposition Accompanied Patient To Recovery: No Indications Patient is a 68-year-old female is had a long history of knee problems. She been doing extensive conservative treatment over the years it became less successful. She had her left knee replaced the back about 10 years ago. She continued Biovea progressive right knee pain discomfort. X-rays show advanced knee arthritis. She elected proceed with total knee arthroplasty. Description of Procedure Operative implants consist of: 1. Biomet Vanguard size 62.5 right posterior stabilized femoral component. 2. Biomet size 67 tibial tray. 3. 10 mm post stabilized polyethylene insert. 4. 31 x 8 all poly patella. The patient was taken to the operating, identified, placed on the operating table in the supine position. All contact areas were appropriately padded. IV antibiotics were provided by anesthesia team. Spinal anesthetic and adductor canal block had been provided in the holding area. A Thompson catheter was placed in sterile fashion to the right thigh turn was then placed in the right lower extremity was then prepped and draped in usual sterile fashion. The right leg was elevated exsanguinated with use of an Esmarch and tourniquet placed at 300 mmHg. An anterior approach to the right knee was then performed to longitudinal incision centered over the patella. Sharp dissection was carried through subcutaneous tissue down the extensor mechanism. A medial parapatellar arthrotomy incision was made. Some subperiosteal dissection was carried out medially. The fat pad was resected from Neath patella tendon. Lateral patellofemoral ligament was released. Patella subluxated laterally and the knee was flexed. The osteophytes taken on distal femur. The ACL and PCL were then released from distal femur the tibia subluxated anteriorly. The ex ternal treatment line jig was then placed the interface the tibia and adjusted 14 mm medially. Proximal tibial cut was made remove about a millimeter bone from most deficient aspect the medial tibial plateau. The tibia sized to a size 67. Some osteophytes taken off medial and posterior medially. Attention drawn to the femur. The distal femur was then with a sharp drill. Intramedullary canal was suction. A right 5 degree valgus cutting guide was placed. The distal femoral cutting block was pinned in place. Distal femoral cut was made to take an additional 3 mm of bone off distal femur. The femur was then sized to a size 62.5. The AP cutting block was pinned parallel to the epicondylar axis which was 4 degrees of external rotation. The anterior cut, anterior chamfer, posterior cut, posterior chamfer cuts were made. The box cutting guide was placed in just slight lateral and the box cut was made. The knee was flexed. The remnants of the medial and lateral menisci were excised. The osteophytes taken off the posterior aspect of femur. A trial femoral component was placed. The tibial tray was pinned Ashley external rotation and the implants used. Defect in proximal tibia. The tibial tray. The knee was then trialed and the 10 mm insert fit most appropriately. Attention drawn the patella. The patella was cleaned of all soft tissues. Patella thickness measured 20 mm in thickness was cut down to 12. Was sized to a size 31 patella. The lug holes were drilled for 31 patella. The lateral osteophyte was removed. Patella button was placed. Knee was taken through range of motion patella tracked nicely within no thumbs test. Attention drawn to place the permanent components. All trial components were removed. Bone plug was placed into this femur limit blood loss. A double batch Palacos G cement was mixed. A Biomet Vanguard size 62.5 right posterior stabilized femoral component, a size 67 tibial tray, a 10 mm post stabilized polyethylene insert, and a 31 x 8 all poly patella were then cemented in place. The knee was brought out in full extension till cement hardened. Final cement check was then performed. The pericapsular tissues were injected with total of 100 cc of orthopedic joint mix. The patient did receive 1 g tranexamic acid. The tourniquet was then let down for final tourniquet time 52 minutes. Hemostasis assured use electrocautery. Extensor Meclomen closed with combination 1 PDS suture #1 Vicryl suture in a [id number] fashion. Extensor Meclomen checked found to be intact the subcutaneous tissue then closed with 2 Dexon suture buried interrupted fashion skin was closed skin heavenly. Leg was then cleaned and dried and sterile dressing with Xeroform, 4 fours, sterile cast padding, Jules bandage were applied. Patient then transferred to the recovery room in stable condition. Patient tolerated procedure well and there were no complications. Yazan Sood, my physician temporary administrative assistant, was present for the entire procedure. His assistance was essential and required for appropriate patient positioning, prepping and draping, surgical exposure, performing the technical details of the operation, placement the implants, closure of the wound, and placement of the sterile bandage. I attest to the content of the Intraoperative Record and any orders documented therein. Any exceptions are noted below.
--- NOTE | 2023-09-14 16:13 | Anesthesiology Progress Note ---
Date of Service September 14, 2023 Anesthesia Post Procedure Vital Signs Vital Signs: Temp Pulse Pulse Resp BP Pulse Ox O2 Del Method 09/14/23 16:10 36.0 C L 64 18 133/73 95 Room Air 09/14/23 16:00 67 14 124/76 95 Room Air 09/14/23 15:50 71 18 126/73 97 Room Air 09/14/23 15:40 68 18 124/82 97 Oxymask 09/14/23 15:30 36.0 C L 72 20 124/83 99 Oxymask 09/14/23 10:05 36.5 C 91 H 20 139/82 95 Room Air O2 Flow Rate 09/14/23 16:10 0 09/14/23 16:00 0 09/14/23 15:50 0 09/14/23 15:40 4 09/14/23 15:30 8 09/14/23 10:05 Transfer of Care Handoff Completed per policy Notes Mental Status: alert / awake / arousable Patient Amnestic to Procedure: Yes Nausea / Vomiting: adequately controlled Pain: adequately controlled Airway Patency, RR, SpO2: stable & adequate BP & HR: stable & adequate Hydration State: stable & adequate Neuraxial Anesthesia: was administered and sensory block is resolving Anesthetic Complications: no major complications apparent and Pt Satisfied with anesthetic care
--- NOTE | 2023-09-14 17:13 | XRay Report ---
XR knee RT 1 or 2V routine CLINICAL HISTORY: Postoperative evaluation. COMPARISON: Right knee radiographs August 26, 2023. FINDINGS: Alignment of the total right knee arthroplasty is anatomic. There is no periprosthetic fra cture or unexpected radiopaque foreign body. There are skin heavenly. IMPRESSION: Expected findings following total right knee arthroplasty. ACT 112: Negative or not required by law. Electronically signed by: Nolberto Medrano M.D. 09/14/2023 5:12 PM
[2023-09-14] MEDS ORDERED: MAGNESIUM HYDROXIDE SUSP 30 ML UDC PO PRN (17:15)
[2023-09-14] MEDS ORDERED: traZODone HCL 50 MG TAB PO PRN (17:15)
[2023-09-14] MEDS ORDERED: NYSTATIN POWDER 15GM BTL EXT PRN (17:15)
[2023-09-14] MEDS ORDERED: ONDANSETRON INJ 2 MG/ML 2 ML VIAL IV PRN (17:15)
[2023-09-14] MEDS ORDERED: NALOXONE HCL 0.4 MG/1 ML VIAL/CARP IV PRN (17:15)
[2023-09-14] MEDS ORDERED: ALUMINUM/MAGNESIUM SUSP 30 ML UDC PO PRN (17:15)
[2023-09-14] MEDS ORDERED: DOCUSATE SODIUM 100 MG CAP PO PRN (17:15)
[2023-09-14] MEDS ORDERED: NALOXONE HCL INJ 1 MG/ML 2ML SYR INTNAS PRN (17:15)
[2023-09-14] MEDS ORDERED: METOCLOPRAMIDE HCL INJ 5 MG/ML 2 ML VIAL IV PRN (17:15)
[2023-09-14] MEDS ORDERED: HYDROmorphone INJ 0.5 MG/0.5 ML SYR IV PRN (17:15)
[2023-09-14] MEDS ORDERED: bisacodyL 10 MG SUPP PR PRN (17:15)
[2023-09-14] MEDS ORDERED: ALBUTEROL HFA 8 GM INHALER INH PRN (17:41)
[2023-09-14] MEDS: SODIUM CHLORIDE 0.9% 1,000 ML IV SCH (17:55)
[2023-09-14] MEDS: KETOROLAC TROMETHAMINE 15 MG/ML VIAL IV SCH (18:10)
[2023-09-14] MEDS: CALCIUM 600MG + VIT D 400 IU TAB PO SCH (19:37)
[2023-09-14] MEDS: DOCUSATE SODIUM 100 MG CAP PO SCH (19:37)
[2023-09-14] MEDS: GABAPENTIN 300 MG CAP PO SCH (19:38)
[2023-09-14] MEDS: OMEGA-3 (PURIFIED FISH OIL) 1 GM CAP PO SCH (19:38)
[2023-09-14] MEDS: MAGNESIUM OXIDE 400 MG TAB PO SCH (19:38)
[2023-09-14] MEDS: FLUTICASONE PROPIONATE NA SPR 16 GM BTL NAE SCH (19:39)
[2023-09-14] MEDS: lisinopril 20 MG TAB PO SCH (19:40)
[2023-09-14] MEDS: MONTELUKAST SODIUM 10 MG TABLET PO SCH (19:40)
[2023-09-14] MEDS: CETIRIZINE HCL 10 MG TABLET PO SCH (19:40)
[2023-09-14] MEDS: CHOLECALCIFEROL 125 MCG (5,000 UNITS) TAB PO SCH (19:41)
[2023-09-14] MEDS: POTASSIUM CHLORIDE 10 MEQ TABCR PO SCH (19:41)
[2023-09-14] MEDS: CYANOCOBALAMIN (B-12) 500 MCG TABLET PO SCH (19:41)
[2023-09-14] MEDS: SIMVASTATIN 40 MG TAB PO SCH (19:41)
[2023-09-14] MEDS: ASPIRIN 81 MG ECTAB PO SCH (19:42)
[2023-09-14] MEDS: SENNA 8.6 MG TAB PO SCH (19:42)
[2023-09-14] MEDS ORDERED: SENNA 8.6 MG TAB PO SCH (21:00)
[2023-09-14] MEDS ORDERED: FOLIC ACID PO SCH (21:00)
[2023-09-14] MEDS ORDERED: MULTIVITAMIN TX IRON MINERALS PO SCH (21:00)
[2023-09-14] MEDS ORDERED: NON-FORMULARY MEDICATION (Turmeric 400 mg capsule) PO SCH (21:00)
[2023-09-14] MEDS ORDERED: METHYLCELLULOSE 500 MG PO SCH (21:00)
[2023-09-14] MEDS ORDERED: [UNRECOGNIZED DRUG - OTHER] PO SCH (21:00)
[2023-09-14] MEDS: TRANEXAMIC ACID / 0.7% NACL 1,000 MG/100 ML BAG IV SCH (21:01)
[2023-09-15] MEDS: oxyCODONE HCL IR 5 MG TAB (IMMEDIATE RELEASE) PO PRN (03:07)
[2023-09-15] MEDS: LEVOTHYROXINE SODIUM 75 MCG TABLET PO SCH (05:17)
[2023-09-15 08:02] LABS: Hematocrit (blood only) 32.3 % (37.0-47.0); Hemoglobin 10.6 g/dl (12.0-16.0); Mean Corpuscular Hemoglobin 31.5 pg (25.0-34.0); Mean Corpuscular Hgb Conc 32.8 g/dL (32.0-36.0); Mean Corpuscular Volume 96.1 fL (80.0-100.0); Mean Platelet Volume 9.8 fL (9.4-12.4); Platelet Count 238 K/uL (130-400); RDW Coefficient of Variation 11.7 % (11.5-14.5); RDW Standard Deviation 40.8 fL (36.4-46.3); Red Blood Count 3.36 M/uL (4.20-5.40); White Blood Count 9.63 K/ul (4.8-10.8)
[2023-09-15 08:20] LABS: Creatinine Clr Calc Pharmacy 67.2 ml/min; Est GFR (African American) 78.2 ml/min; Est GFR (Non-African American) 67.5 ml/min; Potassium 4.6 mmol/L (3.5-5.1)
[2023-09-15] MEDS: dexAMETHasone 10 MG in SYRINGE 0 ML IV SCH (08:37)
[2023-09-15] MEDS: MULTIVITAMIN TAB PO SCH (08:44)
[2023-09-15] MEDS: PANTOprazole 40 MG TAB PO SCH (08:45)
--- NOTE | 2023-09-15 09:36 | Orthopedic Progress Note ---
Date of Service September 15, 2023 Assessment & Plan (1) Status post right knee replacement: Overall, she is doing quite well today with good pain control to her right knee. She will work with physical therapy later this morning to work on ambulation and range of motion exercises. She is on aspirin for DVT prophylaxis. She can be discharged home later this morning pending formal physical therapy evaluation and recommendations. She will follow-up with Dr. Mckeon in 2 weeks for postoperative management. May Doe was seen and evaluated this morning resting comfortably in no apparent distress. She notes that her pain is well-controlled the right knee. She has been up and out of bed with no significant issues. She has yet to work physical therapy today. She denies any other concerns today. Review of Systems All systems reviewed & are unremarkable except as noted in HPI & below. Physical Exam . On physical examination of the right knee, dressings are clean, dry, and intact. Her leg is out in full extension. She has active plantarflexion dorsiflexion right ankle. +2 DP and PT pulses. Less than 2-second capillary refill. Normal sensation. Neurovascular intact. Results & Data Results & Data Laboratory Results . Diagnostic Findings . Postoperative x-rays of the right knee show prosthesis to be in anatomical alignment with no signs of fracture complication or loosening. PG Care Time/CCT Total # of Minutes Spent Total Time Spent with Patient: Total time spent is greater than 50% in coordination of care (as documented) at patient's floor/unit and/or counseling patient: Coding Level of Care Code 87191 Post Operative Follow-Up Diagnoses Status post right knee replacement Z96.651
--- NOTE | 2023-09-15 09:38 | Discharge Summary ---
Date of Service September 15, 2023 Principal Diagnosis Same as "Discharge Diagnosis" noted below under Discharge Instructions. Discharge Exam . On physical examination of the right knee, dressings are clean, dry, and intact. Her leg is out in full extension. She has active plantarflexion dorsiflexion right ankle. +2 DP and PT pulses. Less than 2-second capillary refill. Normal sensation. Neurovascular intact. Discharge Data Procedures Performed Operation Date: 09/14/23 12:30 Actual Procedures p Right Total Knee Arthroplasty(Right) - David Mckeon MD Ordered Studies 09/14/23 05:00 US - OR guided needle placemen Routine Hospital Course (1) Status post right knee replacement: On September 14, 2023 Brook arrived at [facility] and underwent a right total knee arthroplasty performed by Dr. Mckeon with no complications. She had a spinal anesthetic. Postoperatively, she was started on aspirin for DVT prophylaxis and transferred to the general orthopedic floor in stable condition. Her hospital course was uneventful. On postoperative day #1, her vital signs were stable and her pain was well-controlled. She participated well with physical therapy working on ambulation and range of motion exercises. She was then discharged home in stable condition. She will follow-up with Dr. Mckeon in 2 weeks for postoperative management. PG Care Time/CCT Total # of Minutes Spent Total Time Spent with Patient: Total time spent is greater than 50% in coordination of care (as documented) at patient's floor/unit and/or counseling patient: Discharge Plan Discharge Items Patient Disposition: Home - Home Health Services Reason For Visit: RIGHT KNEE REPLACEMENT Discharge Diagnosis: Right Knee Replacement Activity: Per Instructions section Weightbearing: Full weightbearing Non-emergency contact: Surgeon Call non-emergency contact if: you have any medication questions Follow-up/Referrals: Eryn Camilo MD [Primary Care Provider] - Diet: Regular Addtl Attending Provider Instructions: ACTIVITY RECOMMENDATIONS: Physical Therapy: * You will go to physical therapy three times each week for four to six weeks after your surgery in order to regain your knee range of motion and to retrain your knee to work properly. * It is just as important to make sure you are getting your knee perfectly straight as it is to regain your knee bend. * Taking a pain pill an hour before therapy can help you have a more productive and comfortable therapy session. Home Exercise: * You were shown a series of exercises (heel props, heel slides, etc.) in the hospital. Do these exercises three to four times each day including the exercises you were shown in physical therapy. Walking: * Get up and walk several times each day. For the first four weeks, try not to stand or walk for more than one hour at a time. If you do stand or walk for more than one hour, you will not hurt anything, but your knee and leg will likely swell. * As you feel comfortable, you may change from the walker or crutches to a cane and then to independent walking. MEDICATIONS: New Medicine: * You will likely be taking one or more of these medications: 1. Oxycodone - A quick and shorter-acting pain medication. Take one to two tablets every six hours to lessen your pain. 2. Aspirin - Thins your blood to lessen the chance of forming a blood clot. * The most common side effects of pain medicine and iron are nausea and constipation. If nausea or constipation is too much of a problem or if you have any questions about your new medicines or doses, call [facility] at [phone]. We will try to help you manage these issues. "VERY IMPORTANT TO READ AND REVIEW" Pain: * The immediate post-operative period after knee replacement surgery is often quite painful. * You are given a prescription for pain medicine. You should take it, as directed, when you need it, especially before physical therapy and before going to bed. Pain that interferes with sleep is very common and can last several months. * You will likely need pain medicine for the first four to six weeks. It will not stop all of the pain. The pain will lessen and as you feel better, you may change to milder pain medicine such as Tylenol. * The most common side effects of pain medicine are nausea and constipation, so don't take more than you need. SPECIAL CARE INSTRUCTIONS: TEDs/Elastic Stockings: * The white elastic stockings help limit swelling and prevent blood clots from forming in your legs. The more you wear them, the more they work. * Wear them for six weeks after knee replacement surgery and four weeks after partial knee replacement. Incision Site Care: * Remove dressing postoperative day 2 and then shower. Keep direct shower pressure off the incision site. * After showering, cover heavenly with dry gauze and change daily or more frequently if the dressing is getting saturated with drainage. * Use the TARAH stockings to hold dressing in place. DO NOT apply tape on the skin. * May completely stop using bandage if wound is dry and no drainage * [place] are removed between 2 and 3 weeks post-op. If your follow-up appointment is made before 2 weeks, please have your appointment re- scheduled. It is too early to remove the heavenly. Prevention of Infection: * Take antibiotics one hour before any dental cleaning, dental work, urological procedure, gastrointestinal procedure or any invasive surgery in order to prevent your new joint from getting infected. * You may get the antibiotics from the doctor performing the procedure or you may call our office at [phone] before and we will call in a prescription to the pharmacy of your choice. Things to Watch For: * Drainage from the incision site that occurs more than one week after your surgery. * Severely increased knee/leg pain or swelling. * Increased redness at the incision site. * Fever above 102 degrees Fahrenheit. * Unusual chest pain or shortness of breath. * Unusual pain or burning with urination. Call [facility] at [phone] with any of the above problems or if you have any questions about your medicines or recovery. FOLLOW UP VISIT: Make an appointment to see your doctor for approximately two weeks after surgery for a progress check and staple removal by calling the office at [phone]. Pending Studies at Discharge: No Stand-Alone Forms: My [facility] [place], Smoking Cessation Medications and DC Order Prescriptions: Continued cholecalciferol (vitamin D3) 125 mcg (5,000 unit) capsule 125 mcg PO QPM Patient Comments: 1400 albuterol sulfate 90 mcg/actuation aerosol powdr breath activated 2 inh inhalation Q6H PRN (Reason: shortness of breath or wheezing) Qty: 1 1RF fluticasone propionate 50 mcg/actuation spray,suspension 1 spray intranasal BID Qty: 48 3RF naloxone 1 mg/mL syringe 1 mg subcut .COMPLEX PRN (Reason: opioid reversal) Qty: 4 0RF Rx Instructions: 1 mg subcutaneously every 2-3 mins until responsive PRN; NTExceed 10 mg total dose/episode gabapentin 300 mg capsule 300 mg PO TID Qty: 270 1RF lisinopril 20 mg tablet 20 mg PO HS Qty: 90 1RF sennosides [Senokot] 8.6 mg tablet 8.6 mg PO BID 14 Days Qty: 28 0RF Rx Instructions: Take two times a day to prevent/treat constipation aspirin [Angela Low Dose Aspirin] 81 mg tablet,delayed release (DR/EC) 81 mg PO BID 45 Days Qty: 90 0RF Rx Instructions: Take to prevent blood clots. acetaminophen [Tylenol Extra Strength] 500 mg tablet 1,000 mg PO TID 30 Days Qty: 180 0RF Rx Instructions: Take 3 times per day to lessen pain. ketorolac 10 mg tablet 10 mg PO Q6 5 Days Qty: 20 0RF Rx Instructions: Take 4 times per day with food for 5 days to lessen pain and swelling. cefadroxil 500 mg capsule 500 mg PO BID 7 Days Qty: 14 0RF Rx Instructions: Take 1 cap twice a day to prevent infection ondansetron 4 mg tablet,disintegrating 4 mg PO Q8 PRN (Reason: nausea) Qty: 20 1RF Rx Instructions: Take as needed for nausea oxycodone 5 mg tablet 5 - 10 mg PO Q6 PRN (Reason: pain) Qty: 40 0RF Rx Instructions: Take as needed for pain turmeric 400 mg capsule 400 mg PO BID calcium citrate-vitamin D3 [Calcium Citrate + D] 315 mg-5 mcg (200 unit) tablet 2 tab PO QPM Patient Comments: 1400 Glucosamine Complex-MSM capsule 1 cap PO DAILY Complete Multivitamin tablet 1 tab PO QPM Adult Probiotic 3 billion cell capsule 1 cell PO BID Rx Instructions: 3,000,000,000 PO twice a day; magnesium oxide 500 mg capsule 500 mg PO BID Patient Comments: afternoon and bedtime cyanocobalamin (vitamin B-12) 1,000 mcg capsule 1,000 mcg PO QPM Patient Comments: 1400 cetirizine [Zyrtec] 10 mg Tablet 10 mg PO HS Fish Oil Capsule 1 cap PO QPM Folate-Folic Acid 1 tab PO QPM Patient Comments: 1400 potassium chloride 10 mEq capsule, extended release 10 meq PO BID Patient Comments: afternoon and bedtime Rx Instructions: TAKE 2 CAPSULE DAILY trazodone 50 mg tablet 50 - 100 mg PO HS PRN (Reason: Sleep) Rx Instructions: 50 mg orally 1 to 2 tabs orally at bedtime PRN; omeprazole 40 mg capsule,delayed release(DR/EC) 40 mg PO QAM simvastatin 40 mg tablet 40 mg PO HS levothyroxine 75 mcg tablet 75 mcg PO QAM Rx Instructions: TAKE 1 TABLET DAILY DIRECTED famotidine 20 mg tablet 20 mg PO HS montelukast 10 mg tablet 10 mg PO HS Rx Instructions: TAKE 1 TABLET DAILY nystatin 100,000 unit/gram powder 1 applic topical BID PRN (Reason: Skin Irritation) methylcellulose (laxative) 500 mg Tablet 2,500 mg PO QPM Patient Comments: 1400 docusate sodium [Colace] 100 mg Capsule 100 mg PO DAILY PRN (Reason: Constipation) Discontinued aspirin 81 mg tablet,delayed release (DR/EC) 81 mg PO QPM Patient Comments: 1400 acetaminophen [Tylenol 8 Hour] 650 mg tablet extended release 1,300 mg PO TID Rx Instructions: 1,300 mg orally TID; Admission Data Admit Date/Time: 09/14/23 15:27 Attending Provider: David Mckeon Admit Provider: David Mckeon Primary Care Provider: Eryn Camilo Other Providers: [facility], [facility]
== END 2023-09-15 13:06 | disposition home health service (06) ==
LOC: ASU 09:39 → 3E 09:39